=== PATIENT | male | born 1965 | race Native Hawaiian/Other Pacific Islander ===

== ENCOUNTER 2020-04-30 10:36 | Outpatient (CLI) | payer OTHER | END 2020-04-30 19:59 | disposition home or self-care (01) | LOC: CT 10:36 | DX: R10.2 Pelvic and perineal pain (principal); R10.9 Unspecified abdominal pain; Z87.442 Personal history of urinary calculi; R82.998 Other abnormal findings in urine ==

== ENCOUNTER 2022-12-25 09:24 | Outpatient (CLI) | payer OTHER | END 2022-12-25 18:56 | disposition home or self-care (01) | LOC: CT 09:24 | PROVIDERS: ATTEND Nurse Practitioner Family | DX: R10.2 Pelvic and perineal pain (principal); R31.9 Hematuria, unspecified; R39.89 Other symptoms and signs involving the genitourinary system; R10.31 Right lower quadrant pain; Z87.442 Personal history of urinary calculi; Z86.79 Personal history of other diseases of the circulatory system; Z09 Encounter for follow-up examination after completed treatment for conditions other than malignant neoplasm ==

== ENCOUNTER 2023-03-20 14:47 | Outpatient (CLI) | payer OTHER | END 2023-03-20 19:11 | disposition home or self-care (01) | LOC: US 14:47 | PROVIDERS: ATTEND Nurse Practitioner Family | DX: I10 Essential (primary) hypertension (principal); R53.83 Other fatigue; R94.6 Abnormal results of thyroid function studies; R42 Dizziness and giddiness; R00.2 Palpitations ==

== ENCOUNTER 2023-07-04 13:38 | Outpatient (CLI) | payer OTHER | END 2023-07-04 19:28 | disposition home or self-care (01) | LOC: RESP 13:38 | PROVIDERS: ATTEND Nurse Practitioner Family | DX: R00.1 Bradycardia, unspecified (principal); R00.2 Palpitations; R42 Dizziness and giddiness; R55 Syncope and collapse | CPT/HCPCS: 93225 ==

== ENCOUNTER 2023-07-11 08:13 | Outpatient (CLI) | payer OTHER | END 2023-07-11 19:08 | disposition home or self-care (01) | LOC: CT 08:13 | PROVIDERS: ATTEND Thoracic Surgery (Cardiothoracic Vascular Surgery) | DX: I71.40 Abdominal aortic aneurysm, without rupture, unspecified (principal) | CPT/HCPCS: 36415; 82565; 84520 ==

== ENCOUNTER 2023-11-19 12:57 | Outpatient (CLI) | payer OTHER | END 2023-11-19 19:22 | disposition home or self-care (01) | LOC: RAD 12:57 | PROVIDERS: ATTEND Physician Assistant | DX: M54.6 Pain in thoracic spine (principal) ==